=== PATIENT | female | born 1990 | race Caucasian/White ===

== ENCOUNTER → 2018-12-10 13:11 | Outpatient (CLI) | payer OTHER, SELFPAY ==
--- NOTE | 2018-12-10 | DI.MRI.S_ITS ---
PROCEDURE: MR ABDOME PELVIS WWO CON INDICATIONS: Cyst of kidney. TECHNIQUE: Coronal HASTE through abdomen and pelvis; axial 2D FLASH in- and [id number] (with and without fat saturation), and breath-hold T2 FSE from the hepatic dome to the bottom of the kidneys. Coronal HASTE MR urogram of kidneys and bladder. Dynamic coronal VIBE of the abdomen and pelvis during administration of contrast. Post-contrast axial VIBE or 2D FLASH with fat saturation from the hepatic dome through the kidneys. Optional diffusion weighted imaging and ADC may be performed. COMPARISON: [facility], MR, ABDOMEN & PELVIS O CONTRAST, 06/11/2017, 18:47. FINDINGS: Image quality: Excellent. Genitourinary system: -Left kidney lateral upper pole enhancing lesion measures 1.6 x 1.5 cm, (20/50), previously 2 x 1.9 cm on MRI 06/11/2017. Mild heterogeneous T2 hyperintensity. No restricted diffusion demonstrated. -No additional renal lesions. No hydronephrosis. Kidneys enhance symmetrically. -Urinary bladder is unremarkable. Other solid organs: Hepatic steatosis. Liver is normal in size and enhancement. Gallbladder is unremarkable. Biliary system is non dilated. Pancreas is normal in morphology. Spleen is normal in size and enhancement. No adrenal nodules. Nodes and vessels: No retroperitoneal or mesenteric adenopathy by size criteria. Aorta and inferior vena cava are normal in size. Bowel and peritoneum: Unenhanced bowel loops are normal in caliber throughout. No free fluid. Lung bases: No pleural effusions. Heart size is normal. Pelvis: Fat-containing left ovarian mass measuring 2.4 x 2.3 cm, (series 15 and 16, image 66), previously measured 2.4 x 2.1 cm. No enhancement mural nodule. No restricted diffusion demonstrated. Simple right ovarian cyst measuring 2.2 cm. No free pelvic fluid. No dilated loops of bowel. Bones and soft tissues: No ventral hernias. Bone marrow is normal in overall signal. IMPRESSION: 1. Slight interval decrease in size in the left kidney superior pole exophytic enhancing lesion. 2. Stable left ovarian dermoid. Small simple right ovarian cyst. Dictated by: Cristo Aaron M.D. on 12/10/2018 at 21:45 Approved by: Cristo Aaron M.D. on 12/10/2018 at 22:08
== END ==
PROVIDERS: PCP Specialist; Visit Provider Urology
DX: N28.1 Cyst of kidney, acquired (principal); N83.202 Unspecified ovarian cyst, left side; N83.201 Unspecified ovarian cyst, right side
CPT/HCPCS: 72197; A9579

== ENCOUNTER → 2022-12-21 12:45 | Outpatient (CLI) | payer OTHER, SELFPAY ==
--- NOTE | 2022-12-21 | DI.US.S_ITS ---
PROCEDURE: US RENAL COMPLETE INDICATIONS: Polycystic ovarian syndrome Renal mass TECHNIQUE: Real-time scanning was performed of the kidneys and bladder, with image documentation. COMPARISON: [facility], , RENAL COMPLETE, 09/12/2017, 8:39. FINDINGS: Kidneys: Kidneys are normal in size. Right kidney measures 12.1 cm long; left kidney measures 11.3 cm long. Right renal cortical thickness is 1.0 cm; left renal cortical thickness is 1.6 cm. Renal cortical echotexture is normal. No hydronephrosis or nephrolithiasis. No suspicious solid mass lesions. Bladder: Pre-void bladder volume is 376 mL. Post-void residual is 0 mL. Pre-void images demonstrate no intraluminal masses or stones. On pre-void images, a unilateral left ureteral jet was noted with color Doppler interrogation. (Of note, ureteral jets may not be detectable in up to 25% of cases due to insufficient differences in specific gravity between ureteral and bladder urine). Miscellaneous: No free pelvic fluid. IMPRESSION: Normal size kidneys with no evidence of hydronephrosis. Dictated by: Yung Ramirez M.D. on 12/21/2022 at 15:31 Approved by: Yung Ramirez M.D. on 12/21/2022 at 15:32
--- NOTE | 2022-12-21 | DI.US.S_ITS ---
PROCEDURE: US PELVIC COMPLETE INDICATIONS: Polycystic ovarian syndrome Renal mass TECHNIQUE: Real-time scanning was performed of the pelvic organs, with image documentation. Additional endovaginal scanning was necessary due to incomplete visualization of the adnexal and endometrial structures by transabdominal scanning. COMPARISON: [facility], MR, ABDOMEN & PELVIS WWO CONTRAST, 06/11/2017, 18:47. [facility], MR, MR ABDOMEN PELVIS WWO CON, 12/10/2018, 14:06. FINDINGS: Uterus: Uterus is anteverted and normal in size at 8.5 x 3.7 x 4.5 cm. The myometrium is homogeneous. The endometrium measures 11 mm combined thickness. Ovaries: The right ovary measures 4.2 x 2.5 x 2.4 cm, with a calculated ovarian volume of 13.1 cc. The left ovary measures 4.0 x 2.3 x 2.8 cm, with a calculated ovarian volume of 13.3 cc. There is a 2.7 x 2.1 x 2.6 cm echogenic mass in left ovary, most likely a ovarian dermoid. Less than 12 follicles can be seen in each ovary. Other: No pathologic free abdominal or pelvic fluid. IMPRESSION: 1. Normal ultrasound appearance of uterus. 2. A 2.7 x 2.1 x 2.6 cm echogenic mass in the left ovary, most likely a dermoid. 3. Normal right ovary. 4. Less than 12 ovarian follicles in each ovary. We strive to produce accurate, complete, and clear reports of imaging services. To assist us in improving patient care, this report was composed using standard report templates and voice recognition software. Therefore, it may contain abnormal punctuation, insertions and/or omissions. Occasional wrong-word or sound-alike substitutions may occur. Though we review the report and make efforts to correct it, we do recommend that the report be read carefully in proper context to recognize any text inaccuracies. Dictated by: Kaylyn Sullivan M.D. on 12/21/2022 at 21:15 Approved by: Kaylyn Sullivan M.D. on 12/21/2022 at 21:19
== END ==
PROVIDERS: PCP Specialist; Referring Provider Family Medicine; Visit Provider Family Medicine
DX: E28.2 Polycystic ovarian syndrome (principal); N28.89 Other specified disorders of kidney and ureter; N83.9 Noninflammatory disorder of ovary, fallopian tube and broad ligament, unspecified
CPT/HCPCS: 76770; 76830; 76856

== ENCOUNTER → 2023-03-27 15:05 | Outpatient (CLI) | payer OTHER, SELFPAY ==
--- NOTE | 2023-03-27 | DI.RAD.S_ITS ---
PROCEDURE: XR FOOT LT 2V INDICATIONS: LEFT FOOT PAIN TECHNIQUE: 2 views of the foot were acquired. COMPARISON: None. FINDINGS: Bones: No fractures or dislocations. No suspicious bony lesions. Soft tissues: No tibiotalar joint effusion. Achilles tendon appears normal. IMPRESSION: No osseous lesion. If symptoms and/or clinical suspicion for pathology persists, further assessment with advanced imaging (e.g. CT, MRI or bone scan) should be considered. Dictated by: Mikki Lagunas MD, PhD on 03/27/2023 at 15:43 Approved by: Mikki Lagunas MD, PhD on 03/27/2023 at 15:44
--- NOTE | 2023-03-27 15:09 | DI.RAD.S_ITS ---
PROCEDURE: XR ANKLE LT 2V INDICATIONS: CHRONIC PAIN OF LEFT ANKLE TECHNIQUE: 2 views of the ankle were acquired. COMPARISON: None. FINDINGS: Bones: No fractures or dislocations. Ankle mortise is normally aligned. No suspicious bony lesions. Soft tissues: No tibiotalar joint effusion. Achilles tendon appears normal. IMPRESSION: No osseous lesion. If symptoms and/or clinical suspicion for pathology persists, further assessment with advanced imaging (e.g. CT, MRI or bone scan) should be considered. Dictated by: Mikki Lagunas MD, PhD on 03/27/2023 at 15:42 Approved by: Mikki Lagunas MD, PhD on 03/27/2023 at 15:43
== END ==
PROVIDERS: PCP Family Medicine; Referring Provider Family Medicine; Visit Provider Family Medicine
DX: M79.672 Pain in left foot (principal); M25.572 Pain in left ankle and joints of left foot; G89.29 Other chronic pain
CPT/HCPCS: 73600; 73620

== ENCOUNTER 2023-09-06 11:40 | Day surgery (SDC) | payer OTHER, SELFPAY ==
[2023-08-28 09:45] VITALS: BMI 44.1
[2023-09-06] VITALS (10 sets, daily range): BP systolic 80–119; BP diastolic 60–78; PULSE 57–86; RESP 12–18; TEMP 36.2–37.1; O2SAT 97–100; BMI 43.7
--- NOTE | 2023-09-06 | PATH_ITS ---
[facility] Accession Number: [id number] No. of containers..02 Tissue . 01 Material submitted: . PART A: uterus - UTERUS,BILATERAL TUBES PART B: ovary - LEFT OVARIAN CYST . 01 Diagnosis: A. UTERUS AND BILATERAL TUBES; HYSTERECTOMY AND BILATERAL SALPINGECTOMY (PRESERVED OVARIES): Fragments of uterus, overall weight: 49 grams. Secretory phase endometrium. Negative for endometrial polyps, hyperplasia, atypia, or malignancy. . B. LEFT OVARIAN CYST, EXCISION: Mature cystic teratoma, fragments aggregating up to 3.5 cm, per gross description. Negative for immature elements or malignancy. [facility] 09/13/2023 1252 Local . 01 Electronically signed: . Mario Montes MD, Pathologist NPI- [id number] . 01 Gross description: . A. Received in formalin with two identifiers and uterus, bilateral tubes, is a fragmented uterus (49 grams, 8.2 x 6.4 x 4.4 cm in aggregate), with two detached, unoriented tubes (the intact tube measures 6.0 x 0.9 cm while the fragmented tube has detached fimbriae and is reapproximated to measure 4.5 x 1.0 cm), with no additional adnexa. The serosa is sotomayor and smooth with no hemorrhage or adhesion identified. The endometrium is sotomayor and velvety averaging 0.1 cm thick with no lesions identified. The myometrium is sotomayor and unremarkable with no lesions identified. The intact tube has violaceous, smooth serosa with no cysts identified. Sectioning reveals an unremarkable stellate lumen. The fragmented fallopian tube has sotomayor smooth serosa with no cysts identified and sectioning reveals an unremarkable stellate lumen. [employer] sections are submitted as follows: A1: Endometrium. A2: Intact fallopian tube to include one-half of bisected fimbriae and cross-sections. A3: Fragmented fallopian tube to include one-half of bisected fimbriae and cross-sections. B. Received in formalin with two identifiers and L. ovarian cyst, are several fragments of sotomayor membranous soft tissue aggregating to 3.5 x 1.7 x 0.7 cm received with hair and grumous material. No distinct lesions, excrescences, or calcified areas are identified. All soft tissue is submitted in cassettes B1-B2. ([id number]) /AUTUMN 09/08/2023 2351 Local . 01 Pathologist provided ICD-10: D27.1, N94.6 . 01 CPT . 319300, 191611 Specimen Comment: A courtesy copy of this report has been sent to [phone] Performed at: 01 [facility] [address] [place] [address], [place], [place] [id number] MD Phan Fink MD Phone: [phone]
[2023-09-06] MEDS: LACTATED RINGERS 1,000 ML 21 ML IV ×2 (12:17→14:34)
--- NOTE | 2023-09-06 12:41 | SUR.OPER ---
Lithotomy on padded OR bed. Mellette Pad Positioner under torso. Head on pillow, arms padded and tucked at sides. Legs secured in padded yellow fins stirrups.
[2023-09-06] MEDS: SCOPOLAMINE 1 PATCH TOP (12:49)
--- NOTE | 2023-09-06 13:05 | PM.PREOP ---
Pre-operative Note Interval Note History & Physical reviewed/Exam performed by Physician: Yes Changes to H&P: No
[2023-09-06] MEDS: CEFAZOLIN 2 GM/100 ML PREMIX 100 ML IV (13:26)
[2023-09-06] MEDS: CEFAZOLIN VIAL 1 GM in SODIUM CHLORIDE 0.9% 100 ML IV (13:26)
[2023-09-06] MEDS: BUPIVACAINE 0.5% (PF) 30 ML, EPINEPHrine 0.15 MG INJ (13:58)
[2023-09-06] MEDS: ACETAMINOPHEN IV 1,000 MG/100 ML VIAL 400 MG IV (14:02)
[2023-09-06] MEDS: ROPIVACAINE 0.2% PF 2 MG/ML 20ML AMP 20 ML INJ (14:50)
--- NOTE | 2023-09-06 15:34 | P.OP_ITS ---
Operative Date/Time/Diagnoses Date of procedure: 09/06/23 Time of procedure: 15:35 Pre-op diagnosis: Menorrhagia with left dermoid cyst Post-op diagnosis: same Procedure & Clinicians Procedure: Laparoscopic supracervical hysterectomy with bilateral salpingectomies and left ovarian cystectomy Same procedure as scheduled: Yes Indications: Patient with menorrhagia despite all methods of control requesting supracervical hysterectomy. Patient with left ovarian dermoid by ultrasound. Surgeon: Jena Sagastume Account Auditor: Amber Borden Click Yes if Unassisted: No Anesthesia Type: General Operative Notes Findings: Normal appearing uterus, tubes, enlarged left ovary with normal right ovary. Normal bowel surface. Normal liver edge and gallbladder dome. No endometriosis. No scar tissue. Left ovarian dermoid. Closure Type: primary Specimen(s): other (Uterus, no cervix, fallopian tubes, left ovarian cyst wall.) Applied: catheter (Maldonado removed after the end of the case) Estimated Blood Loss (mL): 20 Blood products transfused: none Procedure in detail: Patient is brought to the operating room where she underwent general anesthesia and placed in [facility]. She was prepped and draped in the usual sterile fashion. A check list was reviewed with the staff in the room prior to beginning of the case. Patient had pulsatile stockings in place and functional. 2 g of Ancef were in prior to beginning of the case.. A Maldonado catheter was placed. A single-tooth tenaculum was placed on the anterior lip of the cervix and the cervix dilated to a #6 Hegar dilator. The uterine manipulator was placed through the cervix into the uterus with the balloon inflated with 3 mL of air. The area of the umbilical incision and the 5 mm right and left lower quadrant incisions were injected with Marcaine. An incision was made with scalpel. The verries needle was placed into the abdomen and confirmed in the appropriate place with withdrawal on a syringe and then free flow of fluid down through the needle. The abdomen was insufflated with CO2. The needle was removed and a 5 mm trocar placed without difficulty. There did not appear to be any damage is placement of the trocar. The right and left lower quadrant incisions were made with the scalpel and the trochars placed without damage to internal structures. The power seal forceps were used to cauterize along the mesosalpinx followed by the round ligaments on both sides. The fallopian tubes were removed and brought up through the ports. Sequential bites were taken down the broad ligaments. The uterine arteries were cauterized. An incision was made above the level bladder pushing the bladder away from the cervix. The EMBER loop was placed around the uterus and the uterus was amputated above the level of the bladder. Bleeding was controlled with monopolar cautery was used to cauterize in the endocervical canal. A supracervical incision was made and an 11 mm port placed. A 15 mm Endo Catch bag was placed in the abdomen. The uterus was placed in the bag and brought up through the suprapubic port site. The Sourav O was placed. The uterus was hand morselized. The abdomen was reinsufflated and adequate hemostasis was noted. An incision was made in the left ovary and the contents of the dermoid were removed. The cyst wall was grasped and removed with blunt dissection and cauterization. The cyst wall was removed and sent separately. The abdomen was irrigated. Adequate hemostasis was obtained with the power seal forceps and monopolar cautery. Some oozing from the ovary was controlled with flow seal. The trochars were removed and the CO2 allowed escape from the abdomen. The fascia layer of the suprapubic site was repaired with 0 Polysorb suture. Skin was closed with 4-0 Monocryl suture at the suprapubic site and the other 3 sites. The patient went to recovery room in good condition. Counts of instruments and sponges were correct. Amber HILTON was present throughout the case to assist with holding the camera, retracting, cauterizing and cutting the structures on the left side of the patient, as well as assisting with morselization of the uterus. Complications: none Post-operative Condition: stable Disposition: observation (Overnight) Plan for aftercare: Patient will be monitored for any complications postop and discharge home in the morning if stable.
[2023-09-06] MEDS: OXYCODONE IR 5 MG TABLET PO (16:06)
[2023-09-06] MEDS: ONDANSETRON 4 MG/2 ML INJ IV (16:08)
[2023-09-06] MEDS: MORPHINE 2 MG/ML INJ IV (16:52)
--- NOTE | 2023-09-06 17:46 | PC.NURSE ---
33 y/o female admitted to the Center via bed.Patient alert and orientedx3; trying to orient to room S/P [facility]; L. salpingectomy, L.ovariancystectomy.Has 4x occlusive bandaids on abdomen,no drainage,VSS on room air,denies nausea; drinking fluid, tolerating it.IV LR running.No vaginal bleeding noted.
--- NOTE | 2023-09-06 17:55 | PC.NURSE ---
1632,patient c/o of cramping,gave Morphine Sulfate as order,1700 got out of bed to bathroom has 100 yellow urine output. Pain scale decreased to 0/10 ambuated with problems VSS.
[2023-09-06] MEDS: LITHIUM 150 MG IR CAPSULE 300 MG PO (22:06)
[2023-09-06] MEDS: KETOROLAC 30 MG/ML VIAL IV (22:06)
[2023-09-07 03:17] VITALS: TEMP 36.9
[2023-09-07] MEDS: ACETAMINOPHEN 325 MG TABLET 650 MG PO ×2 (03:17→09:37)
[2023-09-07 03:29] VITALS: BP 104/68; PULSE 64; RESP 16; TEMP 36.9; O2SAT 96
--- NOTE | 2023-09-07 03:33 | PC.NURSE ---
Patient sleeping well. Pain meds effective for pain control. Pt up ad rebecca to bathroom and voiding without difficulty.
[2023-09-07] MEDS: KETOROLAC 30 MG/ML VIAL IV ×2 (03:53→09:36)
[2023-09-07 06:17] LABS: Add Manual Diff / Slide Review NO; Basophils Absolute Auto 0 /uL (0-100); Basophils Percent Auto 0.2 % (0-2); Eosinophils Absolute Auto 0 /uL (0-450); Eosinophils Percent Auto 0.1 % (2-4); Hematocrit 38.9 % (36-46); Hemoglobin 12.9 g/dL (12.0-16.0); Lymphocytes Absolute Auto 1200 /uL (1100-4500); Lymphocytes Percent Auto 8.1 % (25-40); Mean Corpuscular HGB Conc 33.2 % (30-36); Mean Corpuscular Hemoglobin 28.9 PG (26-34); Mean Corpuscular Volume 87.1 fL (80-100); Monocytes Absolute Auto 1000 /uL (0-900); Monocytes Percent Auto 6.9 % (3-14); Neutrophils Absolute Auto 12800 /uL (1500-7000); Neutrophils Percent Auto 84.7 % (50-75); Platelet Count 226 X10^3/uL (150-400); Red Blood Cell Count 4.46 X10^6/uL (4.0-5.2); Red Cell Distribution Width 13.6 % (11.6-14.8); White Blood Cell Count 15.1 X10^3/uL (4.5-11.0)
--- NOTE | 2023-09-07 07:30 | PM.DS.1 ---
History of Present Illness History of Present Illness Date Patient Seen: 09/07/23 Time Patient Seen: 07:30 Chief complaint: Menorrhagia and left dermoid cyst Narrative: Patient underwent a laparoscopic supracervical hysterectomy with bilateral salpingectomies and removal left ovarian dermoid cyst on 09/06/2023. Discharge Providers Provider Discharge Date: 09/07/23 Primary care physician: Leydi Oneal MD Discharge provider: Jena Sagastume MD Summary Hospital Course Discharge Diagnosis: Menorrhagia with left ovarian dermoid cyst Hospital Course: Patient underwent a laparoscopic supracervical hysterectomy with bilateral salpingectomies and removal left ovarian dermoid cyst on 09/06/2023. Patient denies nausea. She is urinating. She is passing gas. She is tolerating pain. She is ambulatory. Status at Discharge Cognitive/behavioral status at discharge: oriented Functional status at discharge: independent ambulation Overall status at discharge: patient is progressing back to baseline Time Spent with Patient Time spent: Less than 30 minutes Exam Vital Signs (past 8 hours): - 09/07/23 03:17 09/07/23 03:29 Temperature 98.4 F 98.4 F Pulse Rate 64 Respiratory Rate 16 Blood Pressure 104/68 Pulse Oximetry 96 Oxygen Delivery Method Room Air Narrative Exam Narrative: Abdomen is soft with tenderness but no rebound. Dressings are clean, dry, intact. Extremities without edema and nontender. Objective Labs 09/07/23 05:47 Labs: Laboratory Results - last 24 hr 09/07/23 05:47 WBC 15.1 H RBC 4.46 Hgb 12.9 Hct 38.9 MCV 87.1 MCH 28.9 MCHC 33.2 RDW 13.6 Plt Count 226 Neut % (Auto) 84.7 H Lymph % (Auto) 8.1 L [place]win % (Auto) 6.9 Eos % (Auto) 0.1 L Baso % (Auto) 0.2 Neut # (Auto) 03525 H Lymph # (Auto) 1200 [place]win # (Auto) 1000 H Eos # (Auto) 0 Baso # (Auto) 0 PFSH Medical History (Updated 09/06/23 @ 15:29 by Jena Sagastume MD) Chronic cough Hypothyroid Joint pain PCOS (polycystic ovarian syndrome) Renal mass Bipolar 2 disorder Anxiety Preoperative exam for gynecologic surgery Surgical History (Updated 09/07/23 @ 07:34 by Jena Sagastume MD) [place] teeth extracted Social History household members: spouse Smoking Status: Never smoker alcohol intake: former Discharge Assessment & Plan Assessment and Plan Assessment: Patient with menorrhagia and left ovarian dermoid status post laparoscopic supracervical hysterectomy with bilateral salpingectomies and removal of left ovarian dermoid doing well Plan of Treatment: Home Discharge Plan Discharge Plan Patient Disposition: Home Discharge orders & Medications Discharge Orders: Discharge (Order); Ordered 09/07/23 Ordered By: Jena Sagastume Prescriptions: Continued oxycodone 5 mg tablet 5 mg PO Q4H PRN (Reason: pain) Qty: 20 0RF cholecalciferol (vitamin D3) 50 mcg (2,000 unit) capsule 50 mcg PO DAILY lithium carbonate 300 mg tablet 300 mg PO BEDTIME pramipexole 0.25 mg tablet 0.25 mg PO DAILY metoprolol succinate 25 mg tablet extended release 24 hr 12.5 mg PO DAILY fluticasone propionate [Allergy Relief (fluticasone)] 50 mcg/actuation spray,suspension 1 spray intranasal DAILY Rx Instructions: administer into each nostril propranolol 10 mg tablet 10 mg PO ONCE Follow up/Referrals: Jena Sagastume MD [Physician] - (Patient has a follow-up appointment on 09/13/2023 and a 6 week post op appointment scheduled) Leydi Oneal MD [Primary Care Provider] - Diet/Activity/Treatments Diet: Regular Activity: Nothing in vagina for 1 week otherwise no restrictions Skin/Wound/Dressing Care Report to your healthcare provider any signs of infection, such as:: chills, fever and increased pain Dressing: May remove dressings today leave Steri-Strips in place. Can get wet just pat dry remove in 1 week Visit Report/Discharge Packet Instructions: DI for Hysterectomy, DI for Laparoscopy Stand Alone Forms: Patient Portal/API, Surgery Discharge Discharge Data Primary Care Provider: Leydi Oneal Attending Provider: Jena Sagastume
[2023-09-07 08:12] VITALS: BP 100/69; PULSE 64; RESP 16; TEMP 36.6; O2SAT 99
[2023-09-07 09:36] VITALS: BP 100/69; PULSE 64
[2023-09-07] MEDS: METOPROLOL ER 25 MG TABLET 12.5 MG PO (09:36)
[2023-09-07] MEDS: PRAMIPEXOLE 0.25 MG TABLET PO (09:36)
[2023-09-07] MEDS: OXYCODONE IR 5 MG TABLET PO (09:51)
== END 2023-09-07 10:00 | disposition home or self-care (01) ==
LOC: OR 11:41 → AC 11:42 → LABOR 13:34
PROVIDERS: PCP Family Medicine; Referring Provider Specialist; Visit Provider Specialist
PROC: 0UT94ZL Resection of Uterus, Supracervical, Percutaneous Endoscopic Approach (ICD-10-PCS; CPT 58542; principal; 2023-09-06 13:30)
DX: N92.1 Excessive and frequent menstruation with irregular cycle (principal); D27.1 Benign neoplasm of left ovary
CPT/HCPCS: 58542; 58662; 36415; 85025; J0136; J0171; J0690; J1100; J1885; J2250; J2270; J2405; J2704; J2795; J3010; J3490

== ENCOUNTER → 2024-10-21 16:31 | Outpatient (CLI) | payer OTHER, SELFPAY ==
[2024-10-21 16:55] LABS: Add Manual Diff / Slide Review NO; Basophils Absolute Auto 100 /uL (0-100); Basophils Percent Auto 0.9 % (0-2); Eosinophils Absolute Auto 300 /uL (0-450); Eosinophils Percent Auto 4.3 % (2-4); Hematocrit 43.1 % (36-46); Hemoglobin 14.3 g/dL (12.0-16.0); Lymphocytes Absolute Auto 1900 /uL (1100-4500); Lymphocytes Percent Auto 25.5 % (25-40); Mean Corpuscular HGB Conc 33.1 % (30-36); Mean Corpuscular Hemoglobin 28.9 PG (26-34); Mean Corpuscular Volume 87.3 fL (80-100); Monocytes Absolute Auto 700 /uL (0-900); Monocytes Percent Auto 9.1 % (3-14); Neutrophils Absolute Auto 4500 /uL (1500-7000); Neutrophils Percent Auto 60.2 % (50-75); Platelet Count 259 X10^3/uL (150-400); Red Blood Cell Count 4.94 X10^6/uL (4.0-5.2); Red Cell Distribution Width 13.9 % (11.6-14.8); White Blood Cell Count 7.5 X10^3/uL (4.5-11.0)
[2024-10-21 17:03] LABS: Hemoglobin A1C% w Est Avg Glu 4.8 % (4.0-6.0)
[2024-10-21 17:12] LABS: Alanine Aminotransferase 28 IU/L (<35); Albumin 4.6 g/dL (3.5-5.0); Albumin Globulin Ratio 1.5 (1.0-2.8); Alkaline Phosphatase 54 U/L (38-126); Aspartate Aminotransferase 29 IU/L (14-36); Bilirubin Total 0.4 mg/dL (0.2-1.3); Blood Urea Nitrogen 12 mg/dL (7-17); C-Reactive Protein Quant < 0.5 mg/dL (<1.0); Carbon Dioxide 26 mmol/L (22-32); Chloride 106 mmol/L (98-107); Creatine Kinase 41 U/L (30-135); Estimated Glomerular Filt Rate > 60 mL/min (>60); Glucose 91 mg/dL (70-99); HEMOLYSIS < 15 (0-50); Rheumatoid Factor < 8.6 IU/mL (<12.0); Sodium 141 mmol/L (137-145); Total Protein 7.6 g/dL (6.3-8.2)
[2024-10-21 17:29] LABS: Erythrocyte Sedimentation Rate 7 MM/HR (0-20)
[2024-10-21 17:56] LABS: Free T4, Direct Thyroxine 1.26 ng/dL (0.78-2.19)
[2024-10-21 18:09] LABS: Thyroid Stimulating Hormone 1.32 uIU/mL (0.47-4.68)
[2024-10-21 20:00] LABS: Vitamin D 25 Hydroxy (D3) 26.9 ng/mL (30.0-100.0)
== END ==
LOC: LAB 16:33
PROVIDERS: PCP Family Medicine; Referring Provider Family Medicine; Visit Provider Family Medicine
DX: E03.9 Hypothyroidism, unspecified (principal); E28.2 Polycystic ovarian syndrome; M25.50 Pain in unspecified joint; M25.511 Pain in right shoulder; M25.512 Pain in left shoulder; M46.1 Sacroiliitis, not elsewhere classified; Z13.0 Encounter for screening for diseases of the blood and blood-forming organs and certain disorders involving the immune mechanism
CPT/HCPCS: 36415; 80053; 81374; 82306; 82550; 83036; 84439; 84443; 85025; 85651; 86038; 86140; 86256; 86430

== ENCOUNTER → 2024-10-25 10:32 | Outpatient (CLI) | payer OTHER, SELFPAY ==
--- NOTE | 2024-10-25 10:33 | DI.MRI.S_ITS ---
PROCEDURE: MR LUMBAR SPINE WO CON INDICATIONS: LOWER BACK PAIN TECHNIQUE: Noncontrast sagittal T1 spin echo and T2 fast echo, sagittal STIR, and T2 fast spin echo through the lumbar spine. In cases with scoliosis, additional coronal T2 fast spin echo may be performed. COMPARISON: None. FINDINGS: Image quality: Excellent. Alignment and Curvature: There is normal bony alignment. Bone Marrow: Bilateral pars interarticularis defects at L5-S1. Marrow is of normal overall signal. No acute vertebral body compression fractures. Spinal Cord: Conus medullaris terminates at the L1-L2 level. Visualized cord demonstrates normal signal and size. Paraspinous Soft Tissues: No paravertebral masses. T12-L1: Normal appearance. L1-L2: Normal appearance. L2-L3: Normal appearance. L3-L4: Normal appearance. L4-L5: Normal appearance. L5-S1: Disc desiccation and mild height loss. Mild disc bulge asymmetric to the left with posterior annular tear. No central canal or neural foraminal stenosis. IMPRESSION: 1. Focal degenerative disc disease at L5-S1. 2. Bilateral pars interarticularis defects at L5-S1 without anterolisthesis. Dictated by: Ke Reed M.D. on 10/26/2024 at 15:05 Approved by: eK Reed M.D. on 10/26/2024 at 15:07
== END ==
LOC: MRI 10:32
PROVIDERS: PCP Family Medicine; Referring Provider Family Medicine; Visit Provider Family Medicine
DX: M51.17 Intervertebral disc disorders with radiculopathy, lumbosacral region (principal)
CPT/HCPCS: 72148

== ENCOUNTER → 2024-10-29 10:11 | Outpatient (CLI) | payer OTHER, SELFPAY | PROVIDERS: PCP Family Medicine; Referring Provider Family Medicine; Visit Provider Family Medicine | DX: E03.9 Hypothyroidism, unspecified (principal); E28.2 Polycystic ovarian syndrome; M25.50 Pain in unspecified joint; M25.511 Pain in right shoulder; M25.512 Pain in left shoulder; M46.1 Sacroiliitis, not elsewhere classified | CPT/HCPCS: 81374 ==